=== PATIENT | male | born 1955 | race Caucasian/White ===

== ENCOUNTER 2018-08-11 11:42 | Emergency (ER) | payer OTHER ==
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
[2018-08-11] MEDS ORDERED: fentaNYL 100 MCG/2 ML INJ IVP ONE (12:36)
[2018-08-11] MEDS ORDERED: LET GEL TOPICAL 1 EA SYR TP ONE (12:43)
[2018-08-11] MEDS ORDERED: SKIN ADHESIVE (DERMABOND) 1 EACH TP ONE (13:41)
[2018-08-11 14:05] VITALS: BP 136/100
== END 2018-08-11 15:04 | disposition home or self-care (01) ==
LOC: EDUNIT#
PROC: 09QKXZZ Repair Nasal Mucosa and Soft Tissue, External Approach (ICD-10-PCS; principal; 2018-08-11)
DX: S00.31XA Abrasion of nose, initial encounter (principal); S60.512A Abrasion of left hand, initial encounter; S90.111A Contusion of right great toe without damage to nail, initial encounter; M19.032 Primary osteoarthritis, left wrist; V19.9XXA Pedal cyclist (driver) (passenger) injured in unspecified traffic accident, initial encounter; Y93.55 Activity, bike riding
CPT/HCPCS: 82435-PO; 82565-PO; 82947-PO; 84132-PO; 84295-PO; 84520-PO; 85014-ER; 96374; J3010